=== PATIENT | female | born 1945 | race Two or more races ===

== ENCOUNTER → 2018-01-17 12:08 | Outpatient (CLI) | payer OTHER, BC ==
[~2018-01-17 12:08] MED LIST: ASA81 MG PO; BUPROPION HCL75 MG PO; JANUMET 50-5001 EACH PO; LIPITOR20 MG PO; METFORMIN HCL500 MG PO; ZETIA10 MG PO
== END | disposition home or self-care (01) ==
LOC: LAB 12:08
DX: I10 Essential (primary) hypertension (principal); E11.9 Type 2 diabetes mellitus without complications; M81.0 Age-related osteoporosis without current pathological fracture

== ENCOUNTER 2018-01-21 06:02 | Day surgery (SDC) | payer OTHER, BC | END 2018-01-21 10:31 | disposition home or self-care (01) | LOC: CIR.AMB 06:02 | DX: G56.01 Carpal tunnel syndrome, right upper limb (principal) ==

== ENCOUNTER 2025-03-12 08:40 | Day surgery (SDC) | payer OTHER, BC ==
[2025-03-12 07:58] LABS: HEMATOCRIT 31.8 % (36.0-45.00); HEMOGLOBIN 10.8 g/dL (12.0-15.00); MEAN CELL VOLUME 89.7 fL (80.00-100.00); MEAN CORPUSCULAR HEMOGLOBIN 30.5 pg (27.00-32.0); PLATELET COUNT 445 K/uL (150-450); RED BLOOD COUNT 3.54 M/uL (4.00-6.00); RED CELL DISTRIBUTION WIDTH 14.3 % (11.5-14.5)
[2025-03-12 08:15] LABS: INR 1.04; PARTIAL THROMBOPLASTIN TIME 26.8 SECONDS (22.0-34.0); PROTHROMBIN TIME 11.3 SECONDS (9.0-11.5)
[2025-03-12 08:17] LABS: URINE APPEARANCE Clear; URINE BILIRRUBIN Negative (NEGATIVE); URINE BLOOD Negative; URINE COLOR Yellow; URINE GLUCOSE Negative (NEGATIVE); URINE KETONE Negative (NEGATIVE); URINE LEUKOCYTE Negative; URINE NITRATE Negative; URINE PROTEIN Negative (NEGATIVE); URINE UROBILINOGEN 0.2 E.U./dl
[2025-03-12 08:22] LABS: URINE BACTERIA 46.5 uL (0.0-1933); URINE CAST 4.56 uL (0.0-1.40); URINE EPITHELIAL CELLS 7.9 uL (0.0-38.8); URINE RBC 2.6 uL (0.0-20.8); URINE WBC 3.1 uL (0.0-23.2)
[2025-03-12 08:32] LABS: ALBUMIN 2.9 gm/dL (3.4-5.0); BILIRUBIN TOTAL 0.29 mg/dL (0.3-1.2); CREATININE SERUM 1.12 mg/dL (0.55-1.02); GFR 47.05; GLOBULINA 4.8 G/DL (2.4-3.5); POTASSIUM 5.02 mEq/L (3.5-5.1); TOTAL PROTEIN 7.7 gm/dL (6.4-8.2)
[~2025-03-12 08:40] MED LIST changes: +CRESTOR40 MG
[2025-03-12] MEDS ORDERED: BUPIVACAINE HCL 30 ML VIAL IJ ONE (13:45)
[2025-03-12] MEDS ORDERED: CHLORHEXIDINE GLUCONATE 120 ML BOTTLE TOP ONE (13:45)
== END 2025-03-12 18:40 | disposition home or self-care (01) ==
LOC: CIR.AMB 08:40
PROVIDERS: ATTEND Anesthesiology Pain Medicine
DX: M46.1 Sacroiliitis, not elsewhere classified (principal); Z88.0 Allergy status to penicillin; Z91.013 Allergy to seafood
CPT/HCPCS: 72198